=== PATIENT | male | born 1965 | race Caucasian/White ===

== ENCOUNTER 2018-01-29 18:23 | Inpatient (IN) | payer OTHER ==
[~2018-01-29] VITALS: Ht 188 cm; Wt 81.2 kg
[2018-01-29 18:23] VITALS: BP 161/67
[2018-01-29] MEDS ORDERED: NS 1000ML 1,000 ML ONE (18:48)
[2018-01-29] MEDS ORDERED: NS 1000ML 1,000 ML IV STA (18:50)
[2018-01-29] MEDS ORDERED: ATIVAN IV STA (18:50)
[2018-01-29] MEDS ORDERED: THIAMINE HCL IV STA (18:50)
[2018-01-29] MEDS ORDERED: THIAMINE HCL ONE (18:53)
[2018-01-29] MEDS ORDERED: ATIVAN ONE (18:54)
[2018-01-29] MEDS ORDERED: INFUVITE ADULT IV ONE ×2 (18:54→19:00)
--- NOTE | 2018-01-29 19:00 | ER.PDOC ---
BETTYE LIZ MD 01/29/18 1900: General Chief Complaint: General Complaint Stated Complaint: WEAKNESS/TREMORS TRAVEL OUT OF US: No Time seen by MD: 18:53 Source: patient Exam Limitations: no limitations History of Present Illness Initial Comments Chronic alcoholic who drank today and having shakes which are uncontrollable. Severity: moderate Associated Symptoms: weakness Allergies: Coded Allergies: No Known Drug Allergies (Verified Allergy, Unknown, 03/29/16) Home Meds Unable to Obtain Active Prescriptions or Reported Meds Past Medical History Medical History: asthma, coronary artery disease, cardiac problems, diabetes, heart attack, hypertension, peptic ulcer disease Surgical History: no surgical history Social History Smoking: cigarettes, greater than 1 pack/day Alcohol Use: heavy Drug Use: none Review of Systems Constitutional: no symptoms reported EENTM: no symptoms reported Respiratory: no symptoms reported Cardiovascular: no symptoms reported Gastrointestinal: no symptoms reported Musculoskeletal: see HPI All Other Systems: Reviewed and Negative Physical Exam General Appearance: No Apparent Distress, WD/WN, Other (tremors) EENT: eyes nml inspection Neck: Non-Tender, Full Range of Motion, Supple, Normal Inspection Respiratory: chest non-tender, lungs clear, normal breath sounds, no respiratory distress CVS: reg rate & rhythm, no murmur, no gallop, pulses nml, nml capillary refill Gastrointestinal: Normal Bowel Sounds, No Organomegaly, No Pulsatile Mass, Non Tender Back: Normal Inspection, No CVA Tenderness, No Vertebral Tenderness Extremities: Other (tremors) Neurologic/Psychiatric: speech therapist technician II-XII NML as Tested, No Motor/Sensory Deficits, Alert Skin: Normal Color Progress Progress Care of patient transferred to Dr. Herrera at 7pm Departure Disposition: 09 ADMITTED INPATIENT Impression: Primary Impression: Alcohol withdrawal Condition: Stable Referrals: GONSALO FLORES PERSONAL INJURY SPECIALIST (PCP) PRIMARY CARE PROVIDER Scripts Unable to Obtain Active Prescriptions or Reported Meds TIMOTHY GONZALES MD 01/29/18 1921: General Chief Complaint: General Complaint Stated Complaint: WEAKNESS/TREMORS TRAVEL OUT OF US: No Time seen by MD: 19:11 Source: patient Exam Limitations: no limitations History of Present Illness Initial Comments LAST ALCOHOLIC DRINK 4 DAYS AGO Timing/Duration: 4-6 hours Severity: moderate Associated Symptoms: chest pain Allergies: Coded Allergies: No Known Drug Allergies (Verified Allergy, Unknown, 2/19/17) Home Meds Unable to Obtain Active Prescriptions or Reported Meds Past Medical History Medical History: no pertinent history Family History Significant Family History: no pertinent family hx Social History Alcohol Use: occassionally Drug Use: none Reviewed Nursing Reviewed: Vital Signs, Abn. Noted Review of Systems All Other Systems: Reviewed and Negative Physical Exam General Appearance: Anxious Neck: Non-Tender Respiratory: chest non-tender CVS: tachycardia, extrasystoles (freq) Gastrointestinal: Normal Bowel Sounds Back: Normal Inspection Extremities: Normal Range of Motion Neurologic/Psychiatric: speech therapist technician II-XII NML as Tested, Other (coarse tremors ) Skin: Normal Color Lymphatic: No Adenopathy EKG/XRAY/CT/US EKG: no ST T wave changes EKG Comments: sinus tachy Consult/PCP Time Consult/PCP Called: 20:00 Consult/PCP: DR SMALL Departure Time of Disposition: 20:33 Disposition: 09 ADMITTED INPATIENT Impression: Primary Impression: Alcohol withdrawal Condition: Stable Referrals: GONSALO FLORES PERSONAL INJURY SPECIALIST (PCP) PRIMARY CARE PROVIDER Scripts Unable to Obtain Active Prescriptions or Reported Meds Duration or Time Spent with Pa: 2 hrs BETTYE LIZ MD Jan 29, 2018 19:00 TIMOTHY GONZALES MD Jan 29, 2018 19:21
[2018-01-29 19:02] LABS: BASOPHIL # 0.1 10^3/uL (0.0-0.1); BASOPHIL % 0.6 % (0.0-0.2); EOSINOPHIL # 0.1 10^3/uL (0.0-0.2); EOSINOPHIL % 1.3 % (0.0-5.0); HEMOGLOBIN 15.5 g/dL (13.9-16.3); LYMPHOCYTES # 1.7 10^3/uL (1.0-4.8); LYMPHOCYTES % 19.3 % (24.0-44.0); MEAN CELL HGB 35.1 pg (26-34); MEAN CELL HGB CONCENTRATION 36.4 g/dL (33-37); MEAN CORP VOLUME 96.6 fL (78-100); MEAN PLATELET VOLUME 9.3 fL (7.8-11.0); MONOCYTES # 0.8 10^3/uL (0.3-0.8); MONOCYTES % 8.7 % (5.0-12.0); NEUTROPHIL # 6.3 10^3/uL (1.8-7.7); NEUTROPHILS % 69.8 % (41.0-85.0); PLATELET COUNT 302 10^3/uL (150-400); RED CELL DISTRIBUTION WIDTH 12.9 % (11.5-14.5)
--- NOTE | 2018-01-29 19:10 | PCM.EKG ---
[facility] Test Date: 2018-01-29 Test Time: 19:10:22 Pat Name: STEPHANIE PATIÑO Department: Patient ID: [id number] Room: 303 Gender: M Director Of Consumer Affairs: BRANDT : 1965 Requested By: BETTYE LIZ Order Number: [id number] Reading MD: Bettye LIZ Measurements Intervals [place] Rate: 103 P: 40 IL: 144 QRS: 71 QRSD: 100 T: 59 QT: 352 QTc: 461 Interpretive Statements Sinus tachycardia Otherwise normal ECG No previous ECG available for comparison Electronically Signed On 01-30-2018 9:03:22 PARARESCUE MANAGER by Bettye LIZ Please click the below link to view image of tracing.
[2018-01-29 19:20] LABS: CALCIUM 9.4 mg/dL (8.4-10.5)
[2018-01-29] MEDS ORDERED: PHOS-NAK PACKET PO STA (19:40)
[2018-01-29 19:54] VITALS: BP 155/88
--- NOTE | 2018-01-29 19:56 | NUR ---
DR. SMALL CALLED BY DR. GONZALES REGARDING ADMISSION. AWAIT FURTHER RECOMMENDATIONS.
--- NOTE | 2018-01-29 19:57 | NUR ---
STACI GONZALES ON PHONE FOR PT CONSULT
[2018-01-29] MEDS: PHOS-NAK PACKET PO SCH (20:03)
--- NOTE | 2018-01-29 20:04 | DIREP ---
PROCEDURE:CHEST 1 VIEW COMPARISON:[facility], CR, XRAY CHEST SINGLE VW, 03/29/2016, 07:55 PM. INDICATIONS:cp FINDINGS: LUNGS/PLEURA:No significant pulmonary parenchymal abnormalities. No effusions. VASCULATURE:Normal. Unremarkable pulmonary vasculature. CARDIAC:Normal. No cardiac silhouette abnormality or cardiomegaly. MEDIASTINUM:Normal. No visible mass or adenopathy. BONES:Normal. No fracture or visible bony lesion. OTHER:Negative. CONCLUSION: 1. No active cardiopulmonary disease is demonstrated. No change is noted since 03/29/2016. Dictated by: Arslan Garcia M.D. on 01/29/2018 at 08:02 PM
[2018-01-29] MEDS ORDERED: NS 1000ML/KCL 20MEQ 1,000 ML IV ONE (20:12)
[2018-01-29] MEDS ORDERED: NICOTINE 21MG PATCH TD STA (20:21)
[2018-01-29 20:30] VITALS: BP 166/91
[2018-01-29] MEDS ORDERED: NS 1000ML/KCL 20MEQ 1,000 ML IV SCH (20:30)
[2018-01-29] MEDS ORDERED: NS 1000ML 1,000 ML SCH (20:30)
[2018-01-29] MEDS ORDERED: ATIVAN IV PRN (20:30)
--- NOTE | 2018-01-29 20:40 | NUR ---
TRANSFER TO FLOOR PT TO ROOM 303 VIA WC ACCOMPANIED BY PERSONAL BELONGINGS, THIS NURSE, AND SON. PT DENIES PAIN. PT NOTED TO HAVE UNSTEADY GAIT AND REQUIRED ASSIST TO TRANSFER TO CHAIR. UPON ARRIVAL TO ROOM, PT TRANSFERRED TO BED WITH ASSIST X1, JEANS REMOVED, AND PT POSITIONED SELF IN BED TO COMFORT. IV FLUIDS CONTINUE INFUSING WITHOUT INFILTRATION. BED ALARM APPLIED, SIDE RAILS X2. REPORT TO CRISTELA WILKERSON AND SCOTTY JOYNER. RELINQUISH CARE.
[2018-01-29 21:29] VITALS: BP 164/99
[2018-01-30 00:10] VITALS: BP 173/89
--- NOTE | 2018-01-30 02:22 | PCM.HP ---
History of Present Illness Reason for Visit: Tremors History of Present Illness Patient is a 52 M PMH of alcohol abuse presenting to ER with tremors that started today. Patient has hx of daily alcohol abuse for over 30 years. Patient sleeping 2/2 Ativan so most hx taken from son who is in the room with him. Patient reported to have had 5 beers today. He started having tremors yesterday evening so son brought him to the ER. Patient admitted to monitor for alcohol withdrawals. Patient given Ativan with relief of tremors. UDS positive for Marijuana use. Patient BP elevated but has improved with Ativan. Patient resting comfortably and denies any complaints. Past Surgical History: No pertinent hx Past Social History Smoke: 1 pack per day Alcohol: heavy (drinks beer daily over 30 years) Drugs: Marijuana Lives: with Family Travel Hx EBOLA RISK:Travel to/contact w: No Is pt experiencing any Ebola s: No Review of Systems Constitutional: No: Fever, Chills Eyes: No: Conjunctivae inflammation, Eyelid inflammation ENT: No: Nose discharge, Nose congestion Respiratory: No: Cough, Shortness of breath, SOB with excertion, Wheezing Cardiovascular: No: Chest Pain, Palpitations, Edema Gastrointestinal: No: Nausea, Vomiting, Abdominal Pain Genitourinary: No Hematuria, No Retention Musculoskeletal: No: neck pain, back pain Skin: No: Rash, Lesions, Jaundice Neurological: No: Weakness, Numbness, Incoordination, Change in speech, Confusion, Seizures Allergies: Coded Allergies: No Known Drug Allergies (Verified Allergy, Unknown, 03/29/16) Unable to Obtain Active Prescriptions or Reported Meds VTE VTE Risk Total Score: 3 VTE Risk Score VTE Risk: Score 0-1 = Low Risk (Aggressive mobilization; early ambulation; no VTE prophylaxis required) Score 2: Moderate Risk (Intermittent/Pneumatic Compression Device OR Lovenox/Heparin/Coumadin) Score 3-4: High Risk (Intermittent/Pneumatic Compression Device AND Lovenox/Heparin/Coumadin) Score > or =5: Highest Risk (Intermittent/Pneumatic Compression Device AND Lovenox/Heparin/Coumadin) VTE VTE Present on Admission: No Currently receiving anticoagul: No VTE Risk Total Score: 3 Exam Vital Signs Vital Signs Date Time Temp Pulse Resp B/P (MAP) Pulse Ox O2 Delivery O2 Flow Rate FiO2 01/30/18 00:10 98.5 79 18 173/89 (117) 94 Room Air 98.5 General Appearance: Oriented X3, Cooperative, No acute distress HEENT: Atraumatic, PERRLA, EOMI, Other (poor dentition) Respiratory: Clear to auscultation, Normal air movement Cardiovascular: Regular rate, Normal S1, Normal S2, No murmurs Abdominal: Normal bowel sounds, Soft, No tenderness Extremities: No edema, Normal pulses, No tenderness/swelling Skin: No rash, No breakdown, No lesions Neuro: Normal speech, Strength at 5/5 X4 ext, Normal tone, Sensation intact, Cranial nerves 3-12 NL Psych/Mental Status: Mental status NL, Mood NL Assessment/Plan Assessment/Plan Assessment/Plan Patient is a 52 M PMH of alcohol abuse presenting to ER with tremors that started today. Plan 1. Alcohol withdrawals: cont Ativan IV prn. Start PO librium. monitor closely. Patient last drink reported today. Will monitor next 48-72 hours. Informed patient/son that will not be cleared medically until 72 hours after last drink. 2. Alcohol Abuse: counseled cessation. 3. Elevated LFTs: Alcoholic Hepatitis 4. Hyponatremia/Hypokalemia/Hypophosphatemia: repleted in ER. Will check metabolic panel in AM. KIMO SMALL MD Jan 30, 2018 02:22
[2018-01-30] MEDS ORDERED: APRESOLINE IV PRN (02:30)
[2018-01-30 04:42] VITALS: BP 166/98
[2018-01-30 05:42] LABS: BASOPHIL # 0.1 10^3/uL (0.0-0.1); BASOPHIL % 0.8 % (0.0-0.2); EOSINOPHIL # 0.2 10^3/uL (0.0-0.2); EOSINOPHIL % 2.5 % (0.0-5.0); HEMOGLOBIN 14.5 g/dL (13.9-16.3); LYMPHOCYTES # 1.3 10^3/uL (1.0-4.8); LYMPHOCYTES % 21.4 % (24.0-44.0); MEAN CELL HGB 35.8 pg (26-34); MEAN CELL HGB CONCENTRATION 36.2 g/dL (33-37); MEAN PLATELET VOLUME 9.6 fL (7.8-11.0); MONOCYTES # 0.6 10^3/uL (0.3-0.8); MONOCYTES % 10.4 % (5.0-12.0); NEUTROPHIL # 3.9 10^3/uL (1.8-7.7); NEUTROPHILS % 64.7 % (41.0-85.0); RED CELL DISTRIBUTION WIDTH 13.1 % (11.5-14.5); WHITE BLOOD CELL 6.1 10^3/uL (4.5-11.0)
[2018-01-30 06:13] LABS: CALCIUM 8.3 mg/dL (8.4-10.5); CARBON DIOXIDE 27.8 mmol/L (20.0-32)
--- NOTE | 2018-01-30 06:44 | NUR ---
REPORT RECEIVED REPORT FROM SCOTTY ARRIOLA. ASSUMED CARE FOR PATIENT AT THIS TIME.
[2018-01-30] MEDS ORDERED: FOLIC ACID PO ONE (07:48)
[2018-01-30] MEDS ORDERED: THIAMINE HCL ONE (07:48)
[2018-01-30] MEDS ORDERED: LIBRIUM ONE (07:49)
[2018-01-30] MEDS ORDERED: VITAMIN B-12 ONE (07:49)
[2018-01-30 07:55] VITALS: BP 154/109
[2018-01-30] MEDS: PHOS-NAK PACKET PO SCH (08:00)
--- NOTE | 2018-01-30 08:05 | NUR ---
PATIENT STATING HE WANTS TO LEAVE THE HOSPITAL AMA. "HE DOESN'T HAVE TIME FOR THIS, HE HAS PLACES TO BE." EDUCATED PATIENT ON HEALTH RISKS AND FINANCIAL REPERCUSSIONS OF LEAVING AGAINST MEDICAL ADVICE. NOTIFIED AT THIS TIME. AMA FORM SIGNED AND DATED. RELINQUISHED CARE FOR PATIENT.
[2018-01-30] MEDS ORDERED: VITAMIN B-12 PO SCH (09:00)
[2018-01-30] MEDS ORDERED: LIBRIUM PO SCH (09:00)
[2018-01-30] MEDS ORDERED: FOLIC ACID PO SCH (09:00)
[2018-01-30] MEDS ORDERED: THIAMINE HCL PO SCH (09:00)
--- NOTE | 2018-01-30 13:30 | PRM.DC ---
Discharge Summary Date of Discharge: Jan 30, 2018 Reason for Visit: Tremors Additional Comments Patient was admitted for tremors and concern for alcohol withdrawals. Patient was admitted and started on IV Ativan PRN and PO Librium for symptoms. When patient woke up, he requested to leave AMA. Form provided and patient signed out AMA. Unable to Obtain Active Prescriptions or Reported Meds Sepsis Evaluation @ Discharge 01/30/18 08:00 Course Sepsis Screening Results: Posi: NEGATIVE Sepsis Qualifier/Stage: NO DEFINITE RISK Vitals & review Data Vital Sign - Last 24 Hours 01/29/18 01/29/18 01/29/18 01/29/18 18:23 18:23 18:23 19:54 Temp 99.1 99.1 99.1 99.1 99.1 99.1 99.1 99.1 Pulse 118 118 118 104 Resp B/P (MAP) 161/67 (98) 155/88 (110) Pulse Ox 98 98 95 O2 Delivery Room Air Room Air Room Air 01/29/18 01/29/18 01/29/18 01/29/18 20:30 21:29 21:33 23:45 Temp 98.3 98.3 Pulse 111 89 Resp 22 20 B/P (MAP) 166/91 (116) 164/99 (120) Pulse Ox 95 94 O2 Delivery Room Air Room Air Room Air Room Air 01/30/18 01/30/18 01/30/18 01/30/18 00:10 03:55 04:42 07:55 Temp 98.5 98.5 98.1 98.0 98.5 98.1 98.0 Pulse 79 79 56 93 Resp 18 B/P (MAP) 173/89 (117) 166/98 (120) 154/109 (124) Pulse Ox 94 94 92 93 O2 Delivery Room Air Room Air Room Air Room Air 01/30/18 07:56 O2 Delivery Room Air Intake and Output 01/29/18 01/29/18 01/30/18 15:01 23:01 07:01 Intake Total 1240 ml Output Total 600 ml Balance 640 ml Laboratory Tests Test 01/29/18 18:30 01/29/18 19:06 01/29/18 19:13 01/29/18 19:43 White Blood Count 9.0 10^3/uL Red Blood Count 4.41 10^6/uL Hemoglobin 15.5 g/dL Hematocrit 42.6 % Mean Corpuscular Volume 96.6 fL Mean Corpuscular Hemoglobin 35.1 pg Mean Corpuscular Hemoglobin Concent 36.4 g/dL Red Cell Distribution Width 12.9 % Platelet Count 302 10^3/uL Mean Platelet Volume 9.3 fL Neutrophils (%) (Auto) 69.8 % Lymphocytes (%) (Auto) 19.3 % Monocytes (%) (Auto) 8.7 % Neutrophils # (Auto) 6.3 10^3/uL Lymphocytes # (Auto) 1.7 10^3/uL Monocytes # (Auto) 0.8 10^3/uL Absolute Immature Granulocyte (auto 0.03 10^3 u/L Eosinophils % 1.3 % Basophils % 0.6 % Basophils # 0.1 10^3/uL Eosinophil Count 0.1 10^3/uL Prothrombin Time 9.3 SEC Prothrombin Time INR (Non-Therap) 0.9 Sodium Level 125 mmol/L Potassium Level 3.1 mmol/L Chloride Level 87.0 mmol/L Carbon Dioxide Level 25.0 mmol/L Anion Gap 16.1 Blood Urea Nitrogen 4 mg/dL Creatinine 1.05 mg/dL Estimated GFR () 90.1 BUN/Creatinine Ratio 3.0 Glucose Level 114 mg/dL Calcium Level 9.4 mg/dL Phosphorus Level 1.4 mg/dL Magnesium Level 1.9 mg/dL Total Bilirubin 1.6 mg/dL Aspartate Amino Transf (AST/SGOT) 95 U/L Alanine Aminotransferase (ALT/SGPT) 113 U/L Alkaline Phosphatase 96 U/L Total Creatine Kinase 96 U/L Creatine Kinase MB 1.0 ng/mL Troponin I < 0.02 ng/mL Total Protein 7.1 g/dL Albumin 3.8 g/dL Globulin 3.3 Serum Alcohol 13 mg/dL < 3 mg/dL Percent Immature Gran (Cell Imm) 0.30 % Urine Opiates, Qualitative NEGATIVE ng/mL Urine Methadone, Qualitative NEGATIVE ng/mL Urine Amphetamine Qualitative NEGATIVE ng/mL Urine Barbiturates, Qualitative NEGATIVE ng/mL Urine Phencyclidine Screen NEGATIVE ng/mL Urine MDMA (Ecstasy), Qualitative NEGATIVE ng/mL Urine Benzodiazepines Screen NEGATIVE ng/mL Urine Cocaine Qualitative NEGATIVE ng/mL Ur Tetrahydrocannabinol (THC) Scrn POSITIVE ng/mL Ammonia 10 umol/L Test 12/23/18 04:56 White Blood Count 6.1 10^3/uL Red Blood Count 4.05 10^6/uL Hemoglobin 14.5 g/dL Hematocrit 40.1 % Mean Corpuscular Volume 99.0 fL Mean Corpuscular Hemoglobin 35.8 pg Mean Corpuscular Hemoglobin Concent 36.2 g/dL Red Cell Distribution Width 13.1 % Platelet Count 245 10^3/uL Mean Platelet Volume 9.6 fL Neutrophils (%) (Auto) 64.7 % Lymphocytes (%) (Auto) 21.4 % Monocytes (%) (Auto) 10.4 % Neutrophils # (Auto) 3.9 10^3/uL Lymphocytes # (Auto) 1.3 10^3/uL Monocytes # (Auto) 0.6 10^3/uL Absolute Immature Granulocyte (auto 0.01 10^3 u/L Eosinophils % 2.5 % Basophils % 0.8 % Basophils # 0.1 10^3/uL Eosinophil Count 0.2 10^3/uL Sodium Level 130 mmol/L Potassium Level 2.8 mmol/L Chloride Level 93.0 mmol/L Carbon Dioxide Level 27.8 mmol/L Anion Gap 12.0 Blood Urea Nitrogen 5 mg/dL Creatinine 0.86 mg/dL Estimated GFR () 113.4 BUN/Creatinine Ratio 5.0 Glucose Level 111 mg/dL Calcium Level 8.3 mg/dL Total Bilirubin 1.5 mg/dL Aspartate Amino Transf (AST/SGOT) 80 U/L Alanine Aminotransferase (ALT/SGPT) 102 U/L Alkaline Phosphatase 80 U/L Total Protein 6.1 g/dL Albumin 3.3 g/dL Globulin 2.8 Percent Immature Gran (Cell Imm) 0.20 % Plan Discharge Date: Jan 30, 2018 Dicharge DX: Alcohol Abuse, Tremors, Alcohol withdrawals Discharge Disposition: Other (left AMA) Plan left KIMO BURROUGHS MD Jan 30, 2018 13:30
== END 2018-01-30 08:20 | disposition left against medical advice (07) | DRG 897 ==
LOC: EDBD 18:23 → ER 18:23 → MS 20:07 → EDPENDDISDT 01-30 20:40
PROVIDERS: ADMIT Family Medicine; ATTEND Family Medicine
DX: F10.239 Alcohol dependence with withdrawal, unspecified (principal); E87.1 Hypo-osmolality and hyponatremia; E11.9 Type 2 diabetes mellitus without complications; F12.90 Cannabis use, unspecified, uncomplicated; F17.210 Nicotine dependence, cigarettes, uncomplicated; I10 Essential (primary) hypertension; I25.10 Atherosclerotic heart disease of native coronary artery without angina pectoris; J45.909 Unspecified asthma, uncomplicated; Z53.21 Procedure and treatment not carried out due to patient leaving prior to being seen by health care provider; E87.6 Hypokalemia; E83.39 Other disorders of phosphorus metabolism; I25.2 Old myocardial infarction; Z87.11 Personal history of peptic ulcer disease
CPT/HCPCS: 36415; 71045; 80053; 80307; 82140; 82550; 82553; 83735; 84100; 84484; 85025; 85610; 93005; 99285; G0378; G0481; J2060; J7030; J3411